=== PATIENT | male | born 1995 | race African-American/Black ===

== ENCOUNTER 2020-12-25 12:40 | Emergency (ER) | payer MEDICAID, OTHER ==
[~2020-12-25] VITALS: Ht 185.4 cm; Wt 91.0 kg
[2020-12-25] MEDS ORDERED: ONDANSETRON HCL 4MG/2ML INJ IV STA (13:44)
[2020-12-25] MEDS ORDERED: FAMOTIDINE 20MG/2ML VIAL IV ONE (13:45)
[2020-12-25] MEDS ORDERED: SODIUM CHLORIDE 0.9% 1,000 ML IV ONE (13:45)
[2020-12-25 14:07] LABS: BASOPHILS % 0.4 % (0.0-2.0); EOSINOPHILS % 1.9 % (0.0-5.0); HEMATOCRIT. 48.7 % (42.0-52.0); HEMOGLOBIN. 16.7 g/dL (14.0-18.0); LYMPHOCYTES % 26.2 % (20.0-50.0); MEAN CORPUSCULAR HEMOGLOBIN 31.3 pg (28.0-32.0); MEAN CORPUSCULAR VOLUME 91.2 fL (80.0-94.0); MEAN PLATELET VOLUME 9.9 fl (7.4-10.4); MONOCYTES % 7.4 % (2.0-8.0); NEUTROPHILS % 64.1 % (40.0-76.0); PLATELET 174 x1000/uL (130-400); RED BLOOD CELL COUNT 5.34 mill/uL (4.7-6.1); RED CELL DISTRIBUTION WIDTH 13.3 % (11.6-14.6)
[2020-12-25 14:12] LABS: CHLORIDE 107 mEq/L (98-107)
[2020-12-25 14:13] LABS: PROTHROMBIN TIME 10.9 sec (9.6-11.0)
[2020-12-25 20:13] VITALS: BP 112/89
== END 2020-12-25 20:12 | disposition home or self-care (01) ==
LOC: ER 12:57
DX: R04.2 Hemoptysis (principal); R11.2 Nausea with vomiting, unspecified; F12.10 Cannabis abuse, uncomplicated; Z90.49 Acquired absence of other specified parts of digestive tract; I49.9 Cardiac arrhythmia, unspecified
CPT/HCPCS: 36415; 71045; 76705; 80053; 83690; 85025; 85610; 93005; 96374; 96375; 99285; J2405; J3490; J7030; Z7610

== ENCOUNTER 2021-06-29 21:25 | Emergency (ER) | payer MEDICAID ==
[~2021-06-29] VITALS: Ht 177.8 cm; Wt 66.0 kg
[2021-06-29 21:40] VITALS: BP 118/74
[2021-06-29] MEDS ORDERED: ACETAMINOPHEN 325MG TABLET PO ONE (22:15)
[2021-06-29] MEDS ORDERED: IBUPROFEN 400MG TABLET PO ONE (22:15)
[2021-06-29] MEDS ORDERED: TETANUS, DIPHTHERIA, PERTUSSIS VAC/PF 0.5ML (>7YR OLD) IM ONE (22:15)
[2021-06-29] MEDS ORDERED: LIDOCAINE HCL 1% 20ML VIAL (Pyxis) INJ INFIL ONE (22:15)
[2021-06-29] MEDS ORDERED: BACITRACIN ZINC OINT UDPKT TOP ONE (22:15)
[2021-06-30] MEDS ORDERED: NAPR-1176 MT (01:39)
[2021-06-30] MEDS ORDERED: ACET-2708 MT (01:39)
[2021-06-30] MEDS ORDERED: CEPH500C2 MT (02:25)
== END 2021-06-30 03:20 | disposition home or self-care (01) ==
LOC: ER 21:25
DX: S61.214A Laceration without foreign body of right ring finger without damage to nail, initial encounter (principal); F12.10 Cannabis abuse, uncomplicated; X58.XXXA Exposure to other specified factors, initial encounter; Y93.89 Activity, other specified; Y92.89 Other specified places as the place of occurrence of the external cause; Y99.8 Other external cause status; Z90.49 Acquired absence of other specified parts of digestive tract
CPT/HCPCS: 12002; 73130; 90471; 90715; 99284; J3490

== ENCOUNTER 2021-09-04 12:22 | Emergency (ER) | payer MEDICAID ==
[~2021-09-04] VITALS: Ht 185.4 cm; Wt 90.0 kg
[~2021-09-04 12:22] MED LIST: ACET-2708 MT; CEPH500C2 MT; NAPR-1176 MT
[2021-09-04] MEDS ORDERED: ONDANSETRON 4MG ODT PO ONE (13:30)
[2021-09-04 22:36] LABS: CHLORIDE 106 mEq/L (98-107)
[2021-09-04 22:40] LABS: ETHANOL BLOOD < 10 mg/dL
[2021-09-05 00:28] LABS: *AMPHETAMINES SCREEN URINE NEGATIVE (NEGATIVE); *BARBITURATES SCREEN URINE NEGATIVE (NEGATIVE); *BENZODIAZEPINES SCREEN URINE NEGATIVE (NEGATIVE); *COCAINE SCREEN URINE PRESUMTIVE POSITIVE (NEGATIVE); METHADONE URINE SCREEN NEGATIVE (NEGATIVE); OPIATES URINE SCREEN NEGATIVE (NEGATIVE)
[2021-09-05 00:29] LABS: CANNABINOID URINE SCREEN PRESUMTIVE POSITIVE (NEGATIVE); PHENCYCLIDINE URINE SCREEN NEGATIVE (NEGATIVE)
[2021-09-05 01:40] LABS: BASOPHILS % 0.3 % (0.0-2.0); EOSINOPHILS % 2.4 % (0.0-5.0); HEMOGLOBIN. 15.7 g/dL (14.0-18.0); MEAN CORPUSCULAR HEMOGLOBIN 30.8 pg (28.0-32.0); MEAN CORPUSCULAR VOLUME 88.2 fL (80.0-94.0); MEAN PLATELET VOLUME 8.1 fl (7.4-10.4); MONOCYTES % 8.2 % (2.0-8.0); NEUTROPHILS % 73.1 % (40.0-76.0); PLATELET 245 x1000/uL (130-400); RED CELL DISTRIBUTION WIDTH 14.4 % (11.6-14.6)
[2021-09-05 03:17] LABS: CHLORIDE 106 mEq/L (98-107)
[2021-09-05] MEDS ORDERED: POTASSIUM CHLORIDE 20MEQ TABLET SR PO ONE (05:30)
[2021-09-05] MEDS ORDERED: MAGNESIUM/ALUMINUM HYDROXIDE/SIMETHICONE 30ML UDC PO ONE (05:30)
[2021-09-05 05:37] VITALS: BP 132/78
== END 2021-09-05 06:10 | disposition home or self-care (01) ==
LOC: ER 12:22
DX: T39.312A Poisoning by propionic acid derivatives, intentional self-harm, initial encounter (principal); F33.1 Major depressive disorder, recurrent, moderate; F14.10 Cocaine abuse, uncomplicated; F12.10 Cannabis abuse, uncomplicated; Z90.49 Acquired absence of other specified parts of digestive tract; Z20.822 Contact with and (suspected) exposure to COVID-19; Y92.018 Other place in single-family (private) house as the place of occurrence of the external cause
CPT/HCPCS: 36415; 80053; 80305; 80307; 80320; 80329; 85025; 93005; 99285; Q0162; G0480

== ENCOUNTER 2023-07-20 17:37 | Emergency (ER) | payer MEDICAID, OTHER ==
[~2023-07-20] VITALS: Ht 180.3 cm; Wt 86.0 kg
[2023-07-20 17:46] VITALS: BP 134/87; PULSE 72; RESP 20; TEMP 98.2; O2SAT 100
[2023-07-20] MEDS ORDERED: KETOROLAC 30MG/ML VIAL IM ONE (19:45)
== END 2023-07-20 20:14 | disposition home or self-care (01) ==
LOC: ER 17:37
DX: J02.9 Acute pharyngitis, unspecified (principal); Z90.49 Acquired absence of other specified parts of digestive tract; Z20.822 Contact with and (suspected) exposure to COVID-19
CPT/HCPCS: 87430; 87070; 96372; 99283; 87426; J1885; C9803; Z7610 ×2

== ENCOUNTER 2024-08-20 09:26 | Emergency (ER) | payer MEDICAID, OTHER ==
[~2024-08-20] VITALS: Ht 182.9 cm; Wt 91.0 kg
[2024-08-20 09:47] VITALS: TEMP 98.2; O2SAT 98
[2024-08-20 10:26] VITALS: BP 127/79; PULSE 67; RESP 18
[2024-08-20] MEDS: KETOROLAC 15MG/ML VIAL IM ONE (10:26)
[2024-08-20] MEDS ORDERED: NAPR-1176 MT (10:29)
== END 2024-08-20 11:30 | disposition home or self-care (01) ==
LOC: ER 09:26
DX: M25.531 Pain in right wrist (principal); F14.90 Cocaine use, unspecified, uncomplicated; F12.90 Cannabis use, unspecified, uncomplicated; Z90.49 Acquired absence of other specified parts of digestive tract; Z79.899 Other long term (current) drug therapy
CPT/HCPCS: 99283; 73110; 96372; J1885